=== PATIENT | female | born 1955 | race Caucasian/White ===

== ENCOUNTER 2017-04-07 16:13 | Emergency (ER) | payer MEDICAID, OTHER ==
[~2017-04-07] VITALS: Ht 157.5 cm; Wt 74.5 kg
[2017-04-07 16:17] VITALS: Ht 157.5 cm; Wt 74.5 kg
[2017-04-07] MEDS ORDERED: AZIT250T94 PO (17:37)
[2017-04-07] MEDS ORDERED: ALBU18HF INHALATION (17:37)
[2017-04-07] MEDS ORDERED: BENZ200C43 PO (17:37)
[2017-04-07 18:11] VITALS: BP 139/71; RESP 20
--- NOTE | 2017-04-09 12:10 | ERD ---
ER Documentation Chief Complaint Chief Complaint Complains of a cough x 4 days HPI Patient is a 62-year-old female presenting to the emergency department with complaints of cough, dry throat, and shortness of breath at night. Symptoms are overall worsening. Symptoms are worsening. She denies fever, chills, or other symptoms at this time. ROS All systems reviewed and are negative except as per history of present illness. Medications Home Meds Active Scripts Albuterol Sulfate* (Ventolin HFA*) 18 Gm Hfa.aer.ad, 2 PUFF INHALATION Q4H, #1 INHALER Prov:LILO MARCUS PA-C 04/07/17 Benzonatate* (Benzonatate*) 200 Mg Capsule, 200 MG PO TID Y for COUGH, #20 CAP Prov:LILO MARCUS PA-C 04/07/17 Azithromycin* (Zithromax*) 250 Mg Tablet, 250 MG PO .ZPACK DIRECTED, #6 TAB TAKE 500 MG (2 TABS) THE FIRST DAY THEN 250 MG (1 TAB) DAYS 2-5 Prov:LILO MARCUS PA-C 04/07/17 Allergies Allergies: Coded Allergies: No Known Allergy (Unverified , 04/07/17) PMhx/Soc Medical and Surgical Hx: pt denies Medical Hx, pt denies Surgical Hx Hx Alcohol Use: No Hx Substance Use: No Hx Tobacco Use: No Smoking Status: Never smoker Physical Exam Vitals Vital Signs Date Time Temp Pulse Resp B/P Pulse Ox O2 Delivery O2 Flow Rate FiO2 04/07/17 18:11 20 139/71 97 04/07/17 16:17 98.7 70 20 139/71 97 Physical Exam Const: Nontoxic, well-appearing female in no acute distress. Head: Atraumatic Eyes: Normal Conjunctiva ENT: Normal External Ears, Nose and Mouth. Neck: Full range of motion..~ No meningismus. Resp: Shallow inspiratory effort. Patient is actively coughing on exam. Mild inspiratory rhonchi noted to bilateral upper lung garrett. Cardio: Regular rate and rhythm, no murmurs. Reproducible chest wall tenderness to palpation to the left side. Skin: No petechiae or rashes Back: No midline or flank tenderness Ext: No cyanosis, or edema Neur: Awake and alert Psych: Normal Mood and Affect Procedures/MDM 62-year-old female presents to the emergency department with complaints of shortness of breath associated with cough. Patient is actively coughing on exam. History and clinical evaluation is consistent with bronchitis. Low suspicion for pneumothorax, pulmonary embolism, aortic dissection, acute coronary syndrome and other emergent conditions. The patient stable for outpatient management with prescriptions for albuterol, benzonatate, and azithromycin. The patient agreed with the discharge plan a diagnosis. She is to return immediately for any new or worsening symptoms. Vital signs remained stable throughout ED course. Recommend for follow-up with the primary care physician within 1-2 days. Departure Diagnosis: Primary Impression: Bronchitis Condition: Fair Patient Instructions: Bronchitis, Antiobiotic Treatment (Adult) [facility] Usted se cruz hecho un examen mdico de control que le indica que no est en mikhail condicin que requiera tratamiento urgente en el Departamento de Emergencia. Un estudio ms profundo y el tratamiento de beckford condicin pueden esperar sin ningn riesgo hasta que usted sea atendida/o en el consultorio de beckford mdico o mikhail cl david. Es responsabilidad suya arreglar mikhail regi para el seguimiento del aracelis. MANEJO DE CONDICIONES NO URGENTES EN EL FUTURO 1) Si usted tiene un mdico de atencin primaria: Usted debera llamar a beckford mdico de atencin primaria antes de venir al departamento de emergencia. Despus de las horas de consultorio, beckford doctor o beckford asociado/a est disponible por telfono. El mdico o enfermero de buffy en el servicio telefnico puede asesorarle por nicki medio para atender el problema, o aracelis contrario se puede programar mikhail regi. 2) Si usted no tiene un mdico de atencin primaria: Llame al mdico o clnica de referencia que aparece abajo srinivas las horas de consultorio para hacer mikhail regi para que le vean. CLINICAS: [facility] [id number] [facility] [phone] [facility] [phone] [facility] [phone] [facility] [phone] [facility] [phone] [address] Additional Instructions: No mas mejor en 2-3 guallpa, regresar. Mas peor en 24 horas, regresear rapidamente. Ir a doctor primario in 5-7 guallpa. Usar instrucciones cuando lizandro medicamento. LILO MARCUS PA-C Apr 09, 2017 12:10
== END 2017-04-07 18:14 | disposition home or self-care (01) ==
LOC: FTE 16:13
DX: J20.9 Acute bronchitis, unspecified (principal)
CPT/HCPCS: 99284